=== PATIENT | male | born 1955 | race Caucasian/White ===

== ENCOUNTER 2020-11-11 20:31 | Inpatient (IN) | payer MEDICARE, OTHER ==
[~2020-11-11] VITALS: Ht 180.3 cm; Wt 167.9 kg
[~2020-11-11 20:31] MED LIST: ASPIRIN81 MG PO; ATORVASTATIN CA40 MG PO; BREO ELLIPTA 11 EACH INH; BUMETANIDE1 MG PO; CLARITIN10 MG PO; CLOPIDOGREL75 MG PO; COZAAR25 MG PO; CYANOCOBAL1000 MCG/1 PO; DIAMOX 250 MG250 MG PO; HYDRALAZINE HCL50 MG PO; IBUPROFEN800 MG PO; KLOR-CON 1010 MEQ PO; LASIX 40 MG TAB40 MG PO; LASIX20 MG PO; LEVAQUIN500 MG PO; LIPITOR TAB 2020 MG PO; LOPRESSOR 25 MG25 MG PO; METOPROLOL SUCC25 MG PO; MIRALAX17 GM PO; PLAVIX 75 MG TA75 MG PO; PROTONIX40 MG PO; SILVADENE CREAM20 GM TOP; SILVADENE20 GM TOP; VENTOLIN HFA 66.7 GM INH; ZEBETA 5 MG TAB5 MG PO; ZESTRIL40 MG PO; ZYVOX600 MG PO
[2020-11-11 21:37] LABS: HEMOGLOBIN 9.7 gm/dl (14.0-17.5); RED BLOOD COUNT 3.65 M/UL (4.20-5.50); WHITE BLOOD COUNT 3.8 K/UL (4.5-11.0)
[2020-11-11 21:58] LABS: BUN/CREATININE RATIO 21 (0-10)
[2020-11-12] MEDS ORDERED: IPRAT-ALBUT 0.5-3 ML INH (00:55)
[2020-11-12] MEDS ORDERED: LACTULOSE10 GM/151 PO (00:57)
[2020-11-12] MEDS ORDERED: FERROUS GLUCON324 M1 PO (01:03)
[2020-11-12] MEDS ORDERED: ELIQUIS 5 MG TAB5 MG PO (01:07)
[2020-11-12] MEDS ORDERED: ISORDIL TAB 1010 MG PO (01:08)
[2020-11-12] MEDS ORDERED: VITAMIN C500 M4 PO (01:14)
[2020-11-12] MEDS ORDERED: CLARITIN10 M2 PO (01:19)
[2020-11-12] MEDS ORDERED: MIRALAX17 GM PO (01:21)
[2020-11-12 04:40] LABS: HEMOGLOBIN 8.5 gm/dl (14.0-17.5); WHITE BLOOD COUNT 3.1 K/UL (4.5-11.0)
[2020-11-12 04:41] LABS: RED BLOOD COUNT 3.26 M/UL (4.20-5.50)
[2020-11-12 05:04] LABS: BUN/CREATININE RATIO 19 (0-10)
[2020-11-13 03:00] LABS: HEMOGLOBIN 8.8 gm/dl (14.0-17.5); RED BLOOD COUNT 3.25 M/UL (4.20-5.50); WHITE BLOOD COUNT 3.4 K/UL (4.5-11.0)
[2020-11-13 03:35] LABS: BUN/CREATININE RATIO 20 (0-10)
[2020-11-14 03:27] LABS: BUN/CREATININE RATIO 19 (0-10)
[2020-11-15 03:55] LABS: HEMOGLOBIN 9.2 gm/dl (14.0-17.5); RED BLOOD COUNT 3.49 M/UL (4.20-5.50); WHITE BLOOD COUNT 2.9 K/UL (4.5-11.0)
[2020-11-15 04:17] LABS: BUN/CREATININE RATIO 18 (0-10)
[2020-11-16 02:44] LABS: HEMOGLOBIN 9.4 gm/dl (14.0-17.5); RED BLOOD COUNT 3.59 M/UL (4.20-5.50)
[2020-11-16 03:01] LABS: BUN/CREATININE RATIO 20 (0-10)
[2020-11-17 04:30] LABS: HEMOGLOBIN 9.6 gm/dl (14.0-17.5); RED BLOOD COUNT 3.66 M/UL (4.20-5.50); WHITE BLOOD COUNT 3.1 K/UL (4.5-11.0)
[2020-11-17 04:50] LABS: BUN/CREATININE RATIO 22 (0-10)
[2020-11-18 04:02] LABS: HEMOGLOBIN 9.8 gm/dl (14.0-17.5); RED BLOOD COUNT 3.76 M/UL (4.20-5.50); WHITE BLOOD COUNT 3.2 K/UL (4.5-11.0)
[2020-11-18 04:30] LABS: BUN/CREATININE RATIO 22 (0-10)
[2020-11-19 04:09] LABS: HEMOGLOBIN 9.7 gm/dl (14.0-17.5); RED BLOOD COUNT 3.85 M/UL (4.20-5.50)
[2020-11-19 04:10] LABS: WHITE BLOOD COUNT 4.1 K/UL (4.5-11.0)
[2020-11-19 04:28] LABS: BUN/CREATININE RATIO 21 (0-10)
[2020-11-20 06:41] LABS: HEMOGLOBIN 9.6 gm/dl (14.0-17.5); RED BLOOD COUNT 3.79 M/UL (4.20-5.50); WHITE BLOOD COUNT 3.8 K/UL (4.5-11.0)
[2020-11-20 07:19] LABS: BUN/CREATININE RATIO 22 (0-10)
[2020-11-21 10:55] LABS: BUN/CREATININE RATIO 22 (0-10)
[2020-11-21] MEDS ORDERED: ASPIRIN EC81 MG PO (18:07)
[2020-11-22 00:50] LABS: HEMOGLOBIN 10.1 gm/dl (14.0-17.5); RED BLOOD COUNT 3.91 M/UL (4.20-5.50)
[2020-11-22 01:14] LABS: BUN/CREATININE RATIO 21 (0-10)
--- NOTE | 2020-11-22 14:01 | NUR ---
NOTIFIED JOEL PRECIADO OF CHANGE IN PATIENT CONDITION AND TRANSFER TO ICU.
[2020-11-22 15:23] LABS: BUN/CREATININE RATIO 19 (0-10)
[2020-11-22 15:26] LABS: HEMOGLOBIN 12.2 gm/dl (14.0-17.5); RED BLOOD COUNT 4.62 M/UL (4.20-5.50); WHITE BLOOD COUNT 10.2 K/UL (4.5-11.0)
--- NOTE | 2020-11-22 18:00 | NUR ---
Pt. was alert and oriented this AM and all throughout the morning shift until around 1315. Pt. showed no signs of distress or agony this morning. Tele called a couple of times reporting that his rhythm looked a little weird but it was not unusual for him. Pt. had several reports of V-Tach over the weekend and cardio was on his case. Earlier this morning he had a little spell but after checking on him and replacing his tele stickers and repositioning him he went back into A-fib which was his baseline rhythm. At approx. 1315 the patient had started to going into a funky rhythm that the manager telemarketing could not really recognize, after checking on the patient he told me he was ok but I could tell he was breathing a little heavy. I attemtped to call Dr. Roberson but I didnt get an answer therefore I left a message at 1322, I then went back to check on the patient and he was still breathing heavy and did not look the best so I called Dr. 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 As soon as I placed the order I went back in the patients room to be with him until they got there and his breathing appeared to be worse and he was really pale and shaking..I called an BOTTOM SCRUBBER and helped intiate his bi-pap around 1335. Dr. Roberson and Dr. Marti arrived around 1336.Pt was hooked up to crash cart to review his rhythm and had a sat of 74%...but it was improving with the bi-pap slowly and we were able to achieve a sat of 90% but on 100% fi02. The following were the events that took place during the BOTTOM SCRUBBER. 1340- 5mg of lopressor was given BP 120/69 1341- Breathing Treatment was given via RT and EKG was performed. 1342- HR 146 O2 89% (on 100% fio2 on bi-pap) 1345- Amiodarone 150mg IVP HR 143 O2 86% 1347- Amiodarone 150mg IVP HR 138 O2 90% -chest, x-ray 1348- HR 110, O2 90% BP 118/45 1349- ABG was taken 1351- O2 86% 1352- Pt. was transfered to ICU and report was given in person to Mora NAPPER RUNNER.
[2020-11-23 03:31] LABS: HEMOGLOBIN 11.2 gm/dl (14.0-17.5); RED BLOOD COUNT 4.34 M/UL (4.20-5.50); WHITE BLOOD COUNT 10.9 K/UL (4.5-11.0)
[2020-11-24 06:26] LABS: HEMOGLOBIN 10.7 gm/dl (14.0-17.5); RED BLOOD COUNT 4.33 M/UL (4.20-5.50); WHITE BLOOD COUNT 9.2 K/UL (4.5-11.0)
[2020-11-24 12:13] LABS: ACINETOBACTER BAUMANNII Not Detected (Negative); CANDIDA ALBICANS Not Detected (Negative); CANDIDA KRUSEI Not Detected (Negative); CANDIDA TROPICALIS Not Detected (Negative); ENTEROCOCCUS Not Detected (Negative); ESCHERICHIA COLI Not Detected (Negative); HAEMOPHILUS INFLUENZAE Not Detected (Negative); KLEBSIELLA OXYTOCA Not Detected (Negative); KLEBSIELLA PNEUMONIAE Not Detected (Negative); KPC-CARBAPENEM-RESISTANCE GENE Not Detected (Negative); PROTEUS Not Detected (Negative); PSEUDOMONAS AERUGINOSA Not Detected (Negative); STAPHYLOCOCCUS Not Detected (Negative); STAPHYLOCOCCUS AUREUS Not Detected (Negative); STREP AGALACTIAE (GROUP B) Not Detected (Negative); STREP PYOGENES (GROUP A) Not Detected (Negative); STREPTOCOCCUS Not Detected (Negative); mecA (METHICILLIN RESIST GENE Not Detected (Negative); vanA/B (VANCOMYCIN RESIST GENE Not Detected (Negative)
[2020-11-24 13:28] LABS: SERRATIA MARCESANS DETECTED (Negative)
[2020-11-25 05:07] LABS: HEMOGLOBIN 10.6 gm/dl (14.0-17.5); RED BLOOD COUNT 4.2 M/UL (4.20-5.50); WHITE BLOOD COUNT 7.6 K/UL (4.5-11.0)
[2020-11-26 05:19] LABS: HEMOGLOBIN 9.9 gm/dl (14.0-17.5); RED BLOOD COUNT 3.96 M/UL (4.20-5.50)
[2020-11-26 05:20] LABS: WHITE BLOOD COUNT 4.8 K/UL (4.5-11.0)
[2020-11-27 11:08] LABS: HEMOGLOBIN 9.1 gm/dl (14.0-17.5); RED BLOOD COUNT 3.63 M/UL (4.20-5.50)
[2020-11-27 11:14] LABS: WHITE BLOOD COUNT 3.5 K/UL (4.5-11.0)
[2020-11-28 05:06] LABS: HEMOGLOBIN 9.5 gm/dl (14.0-17.5); RED BLOOD COUNT 3.77 M/UL (4.20-5.50); WHITE BLOOD COUNT 3.6 K/UL (4.5-11.0)
[2020-11-28 05:24] LABS: BUN/CREATININE RATIO 50 (0-10)
[2020-11-29 04:59] LABS: HEMOGLOBIN 9.2 gm/dl (14.0-17.5); RED BLOOD COUNT 3.67 M/UL (4.20-5.50); WHITE BLOOD COUNT 3.9 K/UL (4.5-11.0)
[2020-11-29 05:10] LABS: BUN/CREATININE RATIO 45 (0-10)
[2020-11-30 05:16] LABS: HEMOGLOBIN 9.1 gm/dl (14.0-17.5); RED BLOOD COUNT 3.64 M/UL (4.20-5.50)
[2020-11-30 05:42] LABS: BUN/CREATININE RATIO 34 (0-10)
[2020-12-01 07:39] LABS: HEMOGLOBIN 9.1 gm/dl (14.0-17.5); RED BLOOD COUNT 3.73 M/UL (4.20-5.50); WHITE BLOOD COUNT 3.2 K/UL (4.5-11.0)
[2020-12-01 08:14] LABS: BUN/CREATININE RATIO 33 (0-10)
[2020-12-02 02:28] LABS: HEMOGLOBIN 9.7 gm/dl (14.0-17.5); RED BLOOD COUNT 3.83 M/UL (4.20-5.50); WHITE BLOOD COUNT 3.5 K/UL (4.5-11.0)
[2020-12-02 02:47] LABS: BUN/CREATININE RATIO 33 (0-10)
[2020-12-03 02:31] LABS: HEMOGLOBIN 9.5 gm/dl (14.0-17.5); RED BLOOD COUNT 3.79 M/UL (4.20-5.50); WHITE BLOOD COUNT 3.9 K/UL (4.5-11.0)
[2020-12-03 02:58] LABS: BUN/CREATININE RATIO 30 (0-10)
[2020-12-04 02:14] LABS: HEMOGLOBIN 9.8 gm/dl (14.0-17.5); RED BLOOD COUNT 3.89 M/UL (4.20-5.50); WHITE BLOOD COUNT 4.2 K/UL (4.5-11.0)
[2020-12-04 02:37] LABS: BUN/CREATININE RATIO 26 (0-10)
[2020-12-05 02:43] LABS: HEMOGLOBIN 9.6 gm/dl (14.0-17.5); RED BLOOD COUNT 3.73 M/UL (4.20-5.50); WHITE BLOOD COUNT 3.8 K/UL (4.5-11.0)
[2020-12-05 03:14] LABS: BUN/CREATININE RATIO 26 (0-10)
[2020-12-06 03:16] LABS: HEMOGLOBIN 9.9 gm/dl (14.0-17.5); RED BLOOD COUNT 3.94 M/UL (4.20-5.50); WHITE BLOOD COUNT 3.4 K/UL (4.5-11.0)
[2020-12-06 04:09] LABS: BUN/CREATININE RATIO 22 (0-10)
[2020-12-06] MEDS ORDERED: ASPIRIN81 MG PO (13:26)
[2020-12-06] MEDS ORDERED: DIGOXIN125 MCG PO (13:26)
[2020-12-06] MEDS ORDERED: LOPRESSOR 25 MG25 MG PO (13:26)
[2020-12-06] MEDS ORDERED: FUROSEMIDE40 MG PO (13:26)
[2020-12-06] MEDS ORDERED: K-DUR TAB 20 M20 MEQ PO (13:26)
[2020-12-06] MEDS ORDERED: BUDESONIDE0.5 MG/2 M NEB (13:26)
== END 2020-12-06 17:41 | disposition short-term general hospital (02) | DRG 207 ==
LOC: ER1 20:31 → CCU 23:00 → PROG CARE 23:00 → CDU 23:00 → PROG CARE 11-12 21:41 → MED SURG 4 11-19 20:12 → CCU 11-22 14:00 → PROG CARE 12-01 19:21
PROVIDERS: Family Medicine; Internal Medicine; ADMIT Internal Medicine Infectious Disease
PROC: 5A09557 Assistance with Respiratory Ventilation, Greater than 96 Consecutive Hours, Continuous Positive Airway Pressure (ICD-10-PCS; 2020-11-11)
PROC: B24BZZ4 Ultrasonography of Heart with Aorta, Transesophageal (ICD-10-PCS; 2020-11-12)
PROC: 0BH17EZ Insertion of Endotracheal Airway into Trachea, Via Natural or Artificial Opening (ICD-10-PCS; principal; 2020-11-22)
PROC: 5A1955Z Respiratory Ventilation, Greater than 96 Consecutive Hours (ICD-10-PCS; 2020-11-22)
PROC: 02HV33Z Insertion of Infusion Device into Superior Vena Cava, Percutaneous Approach (ICD-10-PCS; 2020-11-22)
PROC: 8E0ZXY6 Isolation (ICD-10-PCS; 2020-11-23)
PROC: 3E033XZ Introduction of Vasopressor into Peripheral Vein, Percutaneous Approach (ICD-10-PCS; 2020-11-28)
PROC: 0BJ08ZZ Inspection of Tracheobronchial Tree, Via Natural or Artificial Opening Endoscopic (ICD-10-PCS; 2020-11-28)
PROC: 0B9F7ZX Drainage of Right Lower Lung Lobe, Via Natural or Artificial Opening, Diagnostic (ICD-10-PCS; 2020-11-28)
DX: J96.21 Acute and chronic respiratory failure with hypoxia (principal); J15.6 Pneumonia due to other Gram-negative bacteria; A41.53 Sepsis due to Serratia; R65.21 Severe sepsis with septic shock; G92 Toxic encephalopathy; N17.0 Acute kidney failure with tubular necrosis; I50.43 Acute on chronic combined systolic (congestive) and diastolic (congestive) heart failure; N39.0 Urinary tract infection, site not specified; D61.818 Other pancytopenia; E66.2 Morbid (severe) obesity with alveolar hypoventilation; J44.0 Chronic obstructive pulmonary disease with (acute) lower respiratory infection; E87.2 Acidosis; L03.116 Cellulitis of left lower limb; L03.115 Cellulitis of right lower limb; I48.20 Chronic atrial fibrillation, unspecified; Z68.43 Body mass index [BMI] 50.0-59.9, adult; Z66 Do not resuscitate; Z20.822 Contact with and (suspected) exposure to COVID-19; I11.0 Hypertensive heart disease with heart failure; J96.22 Acute and chronic respiratory failure with hypercapnia; D69.6 Thrombocytopenia, unspecified; E83.39 Other disorders of phosphorus metabolism; Z96.653 Presence of artificial knee joint, bilateral; I35.1 Nonrheumatic aortic (valve) insufficiency; R31.9 Hematuria, unspecified; E78.5 Hyperlipidemia, unspecified; I48.0 Paroxysmal atrial fibrillation; I35.0 Nonrheumatic aortic (valve) stenosis; T42.75XA Adverse effect of unspecified antiepileptic and sedative-hypnotic drugs, initial encounter; B95.2 Enterococcus as the cause of diseases classified elsewhere; Z88.1 Allergy status to other antibiotic agents; Z88.0 Allergy status to penicillin; Z79.01 Long term (current) use of anticoagulants; Z95.2 Presence of prosthetic heart valve; Z87.891 Personal history of nicotine dependence; Z82.49 Family history of ischemic heart disease and other diseases of the circulatory system; Z86.73 Personal history of transient ischemic attack (TIA), and cerebral infarction without residual deficits
CPT/HCPCS: ECHO; 0240U; 31500; 36415; 36600; 70450; 71045; 80048; 80053; 80202; 82550; 82553; 82803; 83605; 83735; 83874; 83880; 84100; 84439; 84443; 84484; 85025; 85027; 85610; 86140; 87040; 87070; 87077; 87086; 87150; 87186; 87205; 93005; 93306; 94002; 94003; 94640; 94660; 94664; 94760; 96374; 96376; 97110; 97110-GP-CQ; 97116; 97116-GP-CQ; 97161; 97164; 97167; 97530; 97530-GP-CQ; 99285; A6212; C1751; G0378; J0282; J0330; J1120; J1160; J1205; J1335; J1940; J1956; J2020; J2185; J2250; J2370; J2405; J2704; J3010; J3370; J7030; J7050; J7070; J7120

== ENCOUNTER 2021-01-10 15:46 | Inpatient (IN) | payer MEDICARE ==
[~2021-01-10] VITALS: Ht 182.9 cm; Wt 156.1 kg
[~2021-01-10 15:46] MED LIST changes: +ASPIRIN EC81 MG PO; +BUDESONIDE0.5 MG/2 M NEB; +CLARITIN10 M2 PO; +DIGOXIN125 MCG PO; +ELIQUIS 5 MG TAB5 MG PO; +FERROUS GLUCON324 M1 PO; +FUROSEMIDE40 MG PO; +IPRAT-ALBUT 0.5-3 ML INH; +ISORDIL TAB 1010 MG PO; +K-DUR TAB 20 M20 MEQ PO; +LACTULOSE10 GM/151 PO; +VITAMIN C500 M4 PO
[2021-01-10 17:14] LABS: HEMOGLOBIN 8.4 gm/dl (14.0-17.5); WHITE BLOOD COUNT 2.6 K/UL (4.5-11.0)
[2021-01-10 17:32] LABS: BUN/CREATININE RATIO 16 (0-10)
[2021-01-11 04:56] LABS: HEMOGLOBIN 8.5 gm/dl (14.0-17.5); RED BLOOD COUNT 3.06 M/UL (4.20-5.50); WHITE BLOOD COUNT 3.2 K/UL (4.5-11.0)
[2021-01-11 05:08] LABS: BUN/CREATININE RATIO 15 (0-10)
[2021-01-11] MEDS ORDERED: VIAGRA100 MG PO (13:44)
[2021-01-11] MEDS ORDERED: BUMETANIDE1 MG PO (13:46)
[2021-01-11] MEDS ORDERED: METOPROLOL TART25 MG PO (15:55)
[2021-01-11] MEDS ORDERED: FUROSEMIDE40 MG PO (15:59)
--- NOTE | 2021-01-13 12:35 | NUR ---
REPORT CALLED TO CANDY PENALOZA ON MED SURG 5, PT GOING TO RM [id number] WITH TELE MONITOR AND CONTINOUS PULSE OX
[2021-01-14] MEDS ORDERED: DIGOXIN125 MCG PO (16:17)
[2021-01-14] MEDS ORDERED: ELIQUIS 5 MG TAB5 MG PO (16:17)
[2021-01-14] MEDS ORDERED: ASPIRIN81 MG PO (16:17)
[2021-01-14] MEDS ORDERED: ALDACTONE 25MG25 MG PO (16:17)
[2021-01-16 03:58] LABS: RED BLOOD COUNT 4.06 M/UL (4.20-5.50); WHITE BLOOD COUNT 4.9 K/UL (4.5-11.0)
[2021-01-16 04:02] LABS: HEMOGLOBIN 11.3 gm/dl (14.0-17.5)
--- NOTE | 2021-01-16 21:00 | NUR ---
CALLED PHARMACY REGARDING PO LASIX. PER GONZALO, SHE STATED THAT THE PO LASIX WAS TO BE GIVEN IN AM STARTING 01/17/21.
[2021-01-17] MEDS ORDERED: FUROSEMIDE40 MG PO (09:59)
--- NOTE | 2021-01-17 17:31 | NUR ---
PT STATES HE CAME IN WITH PORTABLE OXYGEN AND THAT IT IS NOT IN HIS ROOM NOW. ED NOTIFIED TO SEARCH FOR TANK. IN MEANTIME [employer] OXYGEN [employer] IS BRINGING PT. PORTABLE OXYGEN TANK.
--- NOTE | 2021-01-17 18:01 | NUR ---
ALLAN BROUGHT PORTABLE O2 FOR PT FOR TRAVEL HOME. [facility] NOTIFIED AND REPORT GIVEN TO
== END 2021-01-17 19:14 | disposition home or self-care (01) | DRG 291 ==
LOC: ER1 15:46 → CDU 22:05 → M/S 22:05 → PROG CARE 01-11 15:16 → M/S 01-13 13:02
PROVIDERS: Family Medicine; Internal Medicine; Internal Medicine Interventional Cardiology; Internal Medicine Pulmonary Disease; ADMIT Internal Medicine
PROC: 5A09457 Assistance with Respiratory Ventilation, 24-96 Consecutive Hours, Continuous Positive Airway Pressure (ICD-10-PCS; principal; 2021-01-10)
DX: I11.0 Hypertensive heart disease with heart failure (principal); J96.21 Acute and chronic respiratory failure with hypoxia; J96.22 Acute and chronic respiratory failure with hypercapnia; E66.2 Morbid (severe) obesity with alveolar hypoventilation; I48.20 Chronic atrial fibrillation, unspecified; D61.818 Other pancytopenia; I48.21 Permanent atrial fibrillation; N17.9 Acute kidney failure, unspecified; Z68.43 Body mass index [BMI] 50.0-59.9, adult; Z66 Do not resuscitate; I50.33 Acute on chronic diastolic (congestive) heart failure; Z20.822 Contact with and (suspected) exposure to COVID-19; I87.8 Other specified disorders of veins; J44.9 Chronic obstructive pulmonary disease, unspecified; I25.10 Atherosclerotic heart disease of native coronary artery without angina pectoris; E78.5 Hyperlipidemia, unspecified; D69.6 Thrombocytopenia, unspecified; I27.81 Cor pulmonale (chronic); K80.20 Calculus of gallbladder without cholecystitis without obstruction; Z96.653 Presence of artificial knee joint, bilateral; I35.0 Nonrheumatic aortic (valve) stenosis; F17.210 Nicotine dependence, cigarettes, uncomplicated; Z79.01 Long term (current) use of anticoagulants; Z95.2 Presence of prosthetic heart valve; Z86.73 Personal history of transient ischemic attack (TIA), and cerebral infarction without residual deficits; Z88.1 Allergy status to other antibiotic agents; Z88.0 Allergy status to penicillin; Z88.8 Allergy status to other drugs, medicaments and biological substances; Z82.49 Family history of ischemic heart disease and other diseases of the circulatory system; Z99.81 Dependence on supplemental oxygen; Z91.14 Patient's other noncompliance with medication regimen; Z87.01 Personal history of pneumonia (recurrent); Z87.440 Personal history of urinary (tract) infections
CPT/HCPCS: 36415; 36600; 71045; 71046; 80048; 80053; 82550; 82553; 82803; 83735; 83880; 84484; 85025; 93005; 94660; 94664; 94760; 96374; 97116-GP-CQ; 97161; 97166; 97530-GP-CQ; 99285; J1120; J1205; J1940; J2405; U0002

== ENCOUNTER → 2022-05-31 | Outpatient (CLI) | payer MEDICARE ==
[~2022-05-31] MED LIST changes: +ALDACTONE 25MG25 MG PO; +METOPROLOL TART25 MG PO; +VIAGRA100 MG PO
== END ==
LOC: RT 12:01
DX: R09.02 Hypoxemia (principal)
CPT/HCPCS: 36600; 71046; 82803